=== PATIENT | female | born 1970 | race African-American/Black ===

== ENCOUNTER 2020-08-06 17:43 | Emergency (ER) | payer BC ==
[~2020-08-06] VITALS: Ht 152.4 cm; Wt 73.5 kg
[~2020-08-06 17:43] MED LIST: HYDROCHLOROTHIA25 M2; NORCO 5-325 TA1 EACH PO; OXYCONTIN30 MG; PREDNISONE 20 M20 MG PO; TOPROL XL100 MG
[2020-08-06] MEDS ORDERED: LOSARTAN POTAS100 MG PO (17:52)
[2020-08-06] MEDS ORDERED: PHENTERMINE H37.5 M1 PO (17:53)
[2020-08-06] MEDS ORDERED: METHADONE HCL 110 M1 PO (17:54)
[2020-08-06] MEDS ORDERED: OXYCODONE-ACET1 EACH PO (17:54)
[2020-08-06 18:00] LABS: URINE BILIRUBIN NEGATIVE (Negative); URINE BLOOD TRACE (Negative); URINE CLARITY CLEAR; URINE COLOR YELLOW; URINE GLUCOSE-RANDOM* NEGATIVE (Negative); URINE KETONES NEGATIVE (Negative); URINE LEUKOCYTES-REFLEX 2+ (Negative); URINE NITRITE-REFLEX POSITIVE (Negative); URINE PROTEIN (DIPSTICK) NEGATIVE (Negative); URINE UROBILINOGEN 0.2 E.U./dl (0.2-1.0)
[2020-08-06 18:11] LABS: BACTERIA-REFLEX >30 Many /HPF (None Seen); CASTS None Seen /LPF (None Seen); CRYSTALS None Seen /LPF (None Seen); SQUAMOUS 0-3 Few /LPF (0-3)
[2020-08-06 18:12] LABS: URINE RBC 0-2 Rare /HPF (0-2)
[2020-08-06 19:15] LABS: ABSOLUTE NEUTROPHILS 5.1 thou/uL (1.4-8.2); BASOPHILS 0.9 % (0.0-2.0); EOSINOPHILS 0.9 % (0.0-3.0); HEMATOCRIT 35.8 % (37.0-47.0); HEMOGLOBIN 11.9 gm/dL (12.0-15.0); MCH 29.2 pg (26.0-34.0); MCHC 33.2 g/dL (28.0-37.0); MONOCYTES 4.8 % (1.0-8.0); PLATELET COUNT 343 thou/uL (150-400); POLYS 58.4 % (36.0-66.0); RBC 4.07 mil/uL (4.20-5.00); WBC 8.8 thou/uL (4.0-11.0)
[2020-08-06 19:24] LABS: CALCIUM 8.6 mg/dL (8.5-10.1); POTASSIUM 3.4 mmol/L (3.5-5.1)
[2020-08-06 19:30] LABS: ALBUMIN 3.5 g/dL (3.4-5.0); TOTAL BILIRUBIN 0.3 mg/dL (0.2-1.0); TOTAL PROTEIN 7.6 g/dL (6.4-8.2)
[2020-08-06] MEDS ORDERED: KEFLEX500 M1 PO (20:49)
== END 2020-08-06 21:05 | disposition home or self-care (01) ==
LOC: ER 17:43
PROVIDERS: Emergency Medicine
DX: N39.0 Urinary tract infection, site not specified (principal); R19.7 Diarrhea, unspecified; R11.10 Vomiting, unspecified; K21.9 Gastro-esophageal reflux disease without esophagitis; I10 Essential (primary) hypertension; Z90.711 Acquired absence of uterus with remaining cervical stump; Z79.899 Other long term (current) drug therapy